=== PATIENT | female | born 1980 | race Caucasian/White ===

== ENCOUNTER 2017-05-27 12:47 | Emergency (ER) | payer OTHER ==
[2017-05-27 12:57] VITALS: TEMP 97.9
--- NOTE | 2017-05-27 14:17 | EDPHY ---
H & P Time Seen by Provider: 05/27/17 14:01 HPI/ROS: CHIEF COMPLAINT: Left upper eyelid swelling HISTORY OF PRESENT ILLNESS: Patient developed a left eyelid stye 48 hours ago and was started on Bactrim yesterday at urgent care. She presents today with continued left eyelid swelling, mild discomfort, some redness laterally, some clear yellow drainage. REVIEW OF SYSTEMS: No headache. PAST MEDICAL HISTORY: Negative Social history: Teacher General Appearance: Alert, no distress. Visual acuity: noted from nursing notes. Normal. Lids and Lashes: Left lid edema especially laterally, lateral stye 3 mm. Conjunctivae: Some yellow drainage, mildly inflamed. Sclera: Not icteric, left lateral subconjunctival hemorrhage. Pupils: Equal and round, normally reactive. Corneas: No foreign body on surface of cornea. No chemosis. Anterior chamber: normal, no hyphema or hypopyon. External: No proptosis, no periorbital swelling or redness or tenderness. She does have left eyelid swelling. Extraocular motion intact. Emergency Department course/MDM: Oscar [id number]; recommends discontinue Bactrim, placed on doxycycline, ophthalmology follow-up on Monday if not better. Smoking Status: Never smoked Constitutional: Initial Vital Signs Temperature (C) 36.6 C 05/27/17 12:55 Heart Rate 60 05/27/17 12:55 Respiratory Rate 12 05/27/17 12:55 Blood Pressure 106/65 05/27/17 12:55 O2 Sat (%) 96 05/27/17 12:55 O2 Delivery Mode Room Air Allergies/Adverse Reactions: ampicillin Allergy (Verified 05/27/17 12:57) azithromycin Allergy (Verified 05/27/17 12:58) Penicillins Allergy (Verified 05/27/17 12:57) Home Medications: Medication Instructions Recorded Doxycycline Hyclate 100 mg PO BID #20 tab 05/27/17 MDM/Departure - Depart Disposition: Home, Routine, Self-Care Clinical Impression: Stye Qualifiers: Laterality: left Eyelid: upper Qualified Code(s): H00.014 - Hordeolum externum left upper eyelid Condition: Good Instructions: Angelina (ED) Additional Instructions: 1) stop bactrim 2) warm compresses every hour while awake, return for increasing pain or swelling, or any trouble with vision Prescriptions: Doxycycline Hyclate 100 mg PO BID #20 tab Referrals: Valentin Moore MD [Medical Doctor] - 05/29/17
[2017-05-27 14:34] VITALS: BP 128/74; PULSE 72; RESP 16; O2SAT 95
== END 2017-05-27 14:34 | disposition home or self-care (01) ==
DX: H00.014 Hordeolum externum left upper eyelid (principal)

== ENCOUNTER → 2017-11-10 | Outpatient (CLI) | payer OTHER | LOC: FIMAGING 15:59 | PROVIDERS: ATTEND Family Medicine | DX: Z12.31 Encounter for screening mammogram for malignant neoplasm of breast (principal); Z80.3 Family history of malignant neoplasm of breast ==